=== PATIENT | male | born 1965 | race Caucasian/White ===

== ENCOUNTER 2022-09-13 06:20 | Observation (INO) ==
--- NOTE | 2022-05-15 14:54 | PAT Medication Instructions ---
Medication Instructions Date of Service May 15, 2022 Home Medications Medication Instructions Recorded acetaminophen 500 mg tablet 1,000 mg PO Q4H PRN fever or pain 01/31/19 #90 tabs epinephrine 0.3 mg/0.3 mL 0.3 mg (0.3 mL) IM Q4H PRN BEE 12/22/20 injection, auto-injector STING #2 ea albuterol sulfate 90 mcg/actuation 2 puff inhalation Q4H PRN 02/14/21 aerosol inhaler shortness of breath or wheezing #18 grams fremanezumab-vfrm 225 mg/1.5 mL 225 mg (1.5 mL) subcut MONTHLY 30 06/06/21 subcutaneous auto-injector (Ajovy) days #1.5 mL pyridostigmine bromide 60 mg tablet 60 mg PO TID #90 tabs 06/06/21 rizatriptan 10 mg tablet (Maxalt) 10 mg PO .COMPLEX PRN migraine 06/06/21 headache 30 days #9 tabs lisinopril 20 1 tab PO QAM #90 tabs 12/12/21 mg-hydrochlorothiazide 12.5 mg tablet nortriptyline 25 mg capsule 50 mg PO HS #60 caps 12/12/21 nirmatrelvir 300 mg (150 mg See Rx Instructions PO .COMPLEX 04/21/22 x2)-ritonavir 100 mg tablet,dose #30 ea pack(EUA) (Paxlovid) acetaminophen 500 mg tablet 1,000 mg PO Q4H PRN fever or pain esomeprazole magnesium 20 mg capsule,delayed release (Nexium) 20 mg PO QAM epinephrine 0.3 mg/0.3 mL injection, auto-injector 0.3 mg (0.3 mL) IM Q4H PRN BEE STING albuterol sulfate 90 mcg/actuation aerosol inhaler 2 puff inhalation Q4H PRN shortness of breath or wheezing fremanezumab-vfrm 225 mg/1.5 mL subcutaneous auto-injector (Ajovy) 225 mg (1.5 mL) subcut MONTHLY pyridostigmine bromide 60 mg tablet 60 mg PO TID rizatriptan 10 mg tablet (Maxalt) 10 mg PO .COMPLEX PRN migraine headache lisinopril 20 mg-hydrochlorothiazide 12.5 mg tablet 1 tab PO QAM nortriptyline 25 mg capsule 50 mg PO HS nirmatrelvir 300 mg (150 mg x2)-ritonavir 100 mg tablet,dose pack(EUA) (Paxlovid) See Rx Instructions PO .COMPLEX diltiazem HCl 120 mg tablet,extended release 24 hr 120 mg PO QAM Continue as directed epinephrine 0.3 mg/0.3 mL injection, auto-injector 0.3 mg (0.3 mL) IM Q4H PRN BEE STING (if needed) ASK your prescriber and surgeon mayda-vfrm 225 mg/1.5 mL subcutaneous auto-injector (Ajovy) 225 mg (1.5 mL) subcut MONTHLY nortriptyline 25 mg capsule 50 mg PO HS nirmatrelvir 300 mg (150 mg x2)-ritonavir 100 mg tablet,dose pack(EUA) (Paxlovid) See Rx Instructions PO .COMPLEX DO NOT take the morning of surgery lisinopril 20 mg-hydrochlorothiazide 12.5 mg tablet 1 tab PO QAM Take morning of surgery With a small sip of water, OTHERWISE NOTHING TO EAT OR DRINK AFTER MIDNIGHT: acetaminophen 500 mg tablet 1,000 mg PO Q4H PRN fever or pain (if needed) esomeprazole magnesium 20 mg capsule,delayed release (Nexium) 20 mg PO QAM albuterol sulfate 90 mcg/actuation aerosol inhaler 2 puff inhalation Q4H PRN shortness of breath or wheezing (use if needed; please bring rescue inhaler with you to hospital day of surgery if possible) pyridostigmine bromide 60 mg tablet 60 mg PO TID rizatriptan 10 mg tablet (Maxalt) 10 mg PO .COMPLEX PRN migraine headache (if needed) diltiazem HCl 120 mg tablet,extended release 24 hr 120 mg PO QAM Take evening before surgery acetaminophen 500 mg tablet 1,000 mg PO Q4H PRN fever or pain (if needed) albuterol sulfate 90 mcg/actuation aerosol inhaler 2 puff inhalation Q4H PRN shortness of breath or wheezing (if needed) pyridostigmine bromide 60 mg tablet 60 mg PO TID rizatriptan 10 mg tablet (Maxalt) 10 mg PO .COMPLEX PRN migraine headache (if needed) Other Notes If you have any questions please call us at [phone] or [phone] or [phone] or [phone]
--- NOTE | 2022-05-16 12:57 | Anesthesiology Consultation ---
Date of Service May 16, 2022 Assessment & Plan (1) Encounter for pre-operative examination: - Awaiting surgeon-ordered PCP (KALYN, scheduled 06/05) and cardiology (Dr. Reid, scheduled 05/29) preop evaluations. - Neurology office visit (05/15/22): "history of seronegative, thymoma negative myasthenia gravis. Experiences some heat and fatigue related symptoms, usually mild ptosis, occasional diplopia, occasional mild generalized weakness of the nothing that significantly affects his independent functioning. It was suggested that he potentially start Imuran earlier this spring, after an assessment with his neuromuscular disease specialist at [facility], although recommendation was to wait until after his right total knee arthroplasty. In any event, patient's symptoms have significantly improved, he is currently asymptomatic in terms of his myasthenia gravis. He continues with Mestinon, 120 mg taken 3 times per day. Tolerating well. At this point, I would consider this patient neurologically stable in terms of his myasthenia gravis, in anticipation of right total knee arthroplasty June 21. A letter or statement of stability was requested from his surgeon. Patient will continue to follow with his neuromuscular disease specialist at [facility] as well. If he were to experience significant escalation in his myasthenia symptoms, it would not be unreasonable to try a medication such as azathioprine to further control his myasthenia gravis, even though he is seronegative. Return to clinic in 6 months." - COVID screening: Per assessment on 05/16: Travel screen negative. Patient vaccinated. Patient was Covid positive home test 04/18/22 and PCR testing 04/21/22 ([facility]). Symptoms at time: Fatigue, SOB, body aches > now resolved. Pt can proceed as scheduled without additional preop Covid testing or additional Covid contact precautions per 90 days protocol. - Outpatient joint assessment: Pt currently scheduled for inpatient pathway. If surgeon requests review for outpatient joint pathway, patient is not recommended candidate for outpatient joint program from anesthesia standpoint. Chart Review Chart Review: Patient seen in Pre Admission Testing Teaching & Discussion Pre-Anesthesia Teaching/Discussion Notes: Instructed NPO after midnight before surgery,except medications with 15 cc of water. Medication instructions provided according to the PAT guidelines. History Surgery Operation Date: 06/21/22 10:15 Proposed Procedures p Right Total Knee Arthroplasty - Marvel Rosenthal MD Height/Weight Height: 5 ft 8 in Weight: 88.5 kg Allergies Allergy/AdvReac Type Severity Reaction Status Date / Time bee venom protein (honey bee) Allergy Severe Anaphylaxis Verified 05/15/22 15:04 celecoxib [From Celebrex] Allergy Severe Flushed Verified 05/15/22 15:23 face, throat tightness hydrocodone [From Vicodin] Allergy Intermediate Finger Verified 05/15/22 15:23 swelling, Rash (back) Penicillins Allergy Intermediate Hives Verified 05/15/22 15:04 vancomycin Allergy Mild Rash (back) Verified 05/15/22 15:23 Medications Home Medications Medication Instructions Recorded Confirmed Last Taken acetaminophen 500 mg tablet 1,000 mg PO Q4H PRN fever or pain 01/31/19 05/15/22 09/16/20 #90 tabs esomeprazole magnesium 20 mg 20 mg PO QAM 09/07/20 05/15/22 09/16/20 capsule,delayed release (Nexium) epinephrine 0.3 mg/0.3 mL 0.3 mg (0.3 mL) IM Q4H PRN BEE 12/22/20 05/15/22 Unknown injection, auto-injector STING #2 ea albuterol sulfate 90 mcg/actuation 2 puff inhalation Q4H PRN 02/14/21 05/15/22 Unknown aerosol inhaler shortness of breath or wheezing #18 grams fremanezumab-vfrm 225 mg/1.5 mL 225 mg (1.5 mL) subcut MONTHLY 30 06/06/21 05/15/22 Unknown subcutaneous auto-injector (Ajovy) days #1.5 mL rizatriptan 10 mg tablet (Maxalt) 10 mg PO .COMPLEX PRN migraine 06/06/21 05/15/22 Unknown headache 30 days #9 tabs lisinopril 20 1 tab PO QAM #90 tabs 12/12/21 05/15/22 Unknown mg-hydrochlorothiazide 12.5 mg tablet nortriptyline 25 mg capsule 50 mg PO HS #60 caps 12/12/21 05/15/22 Unknown nirmatrelvir 300 mg (150 mg See Rx Instructions PO .COMPLEX 04/21/22 05/15/22 Unknown x2)-ritonavir 100 mg tablet,dose #30 ea pack(EUA) (Paxlovid) diltiazem HCl 120 mg 120 mg PO QAM 05/15/22 05/15/22 Unknown tablet,extended release 24 hr pyridostigmine bromide 60 mg tablet 120 mg PO TID 05/15/22 Unknown Past Medical History Medical History Acid reflux Asthma Stable BPH (benign prostatic hyperplasia) Chronic migraine Degenerative cervical spinal stenosis Gluten intolerance History of COVID-19 04/18/2022 History of kidney stones HTN (hypertension) Hx of supraventricular tachycardia Jaw clicking never locked Lumbar pain Myasthenia gravis Stable, does have leg weakness after walking long distance Osteoarthritis Sleep apnea "Mild", no device Exercise / Class Metabolic Activity III < 4 Walking/Shop/Light housework (one FS (no CP, occasional SOB)) Past Family History Family History Mother Lung cancer Grandfather (Maternal) Prostate cancer Colorectal cancer Grandfather (Paternal) Myocardial infarction Other No family history of adverse response to anesthesia Past Surgical History Surgical History H/O cardiac radiofrequency ablation 02/16/22>FOR SVT/ZAZALLI H/O hand surgery BENIGN TUMOR REMOVED FROM RT HAND History of anesthesia reaction SLOW TO WAKE UP WITH NECK SURGERY History of colonoscopy History of lithotripsy History of neck surgery X 2 (FUSION) no limitations History of shoulder surgery RT History of tonsillectomy History of wisdom tooth extraction Hx of vasectomy Past Anesthesia History No Family Hx of Anesthesia Complications and Other ("Slow to wake" with remote neck surgery) History of PONV No Hx of PONV and Hx of Motion Sickness (occasional) Social History Smoking Status: Never smoker Do You Dip or Chew Tobacco: No Hx Alcohol Use: Yes Alcohol type: beer alcohol intake frequency: holidays/special occasions only Hx Substance Use: No substance use type: does not use Review of Systems Patient denies chest pain, shortness of breath, fever, chills, cough, wheezing, palpitations. Physical Exam Vital Signs VITALS BP 128/86 P 94 TEMP 98.2 SP02 95%RA RESP 18 PHYSICAL Full cervical extension range of motion. Full TMJ range of motion. TMD 3 finger breaths Mallampati Score 2 Dentition: intact, + crowns Lungs: clear throughout to auscultation Cardiac: regular rate and rhythm, no murmurs noted Spine: normal Carotid arteries: negative bruit Extremities: no edema Lab Results Anesthesia Preop Results Results Anesthesia Widget: WBC 6.08 K/ul (4.8-10.8) 05/16/22 Hgb 16.2 g/dl (14.0-18.0) 05/16/22 Hct 45.8 % (40.1-51.0) 05/16/22 Plt 268 K/uL (130-400) 05/16/22 Na 140 mmol/L (136-145) 05/16/22 K 4.0 mmol/L (3.5-5.1) 05/16/22 Cl 100 mmol/L (98-107) 05/16/22 CO2 34 mmol/L (21-32) H 05/16/22 BUN 6 mg/dl (6-23) 05/16/22 Creat 1.01 mg/dl (0.6-1.4) 05/16/22 Glucose Level 88 mg/dl (70-99(Fasting)) 05/16/22 PT 10.3 Seconds (9.0-12.0) 05/16/22 PTT 29.7 Seconds (21.0-31.0) 05/16/22 INR 1.0 (0.9-1.1) 05/16/22 HA1c 5.7 % (4.5-5.6) H 05/16/22 Urine Color Yellow 05/16/22 Urine Appearance Clear (Clear) 05/16/22 Urine pH 7.0 (4.5-7.5) 05/16/22 Urine Specific [place] 1.005 (1.000-1.030) 05/16/22 Urine Protein Negative (Negative) 05/16/22 Urine Glucose (UA) Negative (Negative) 05/16/22 Urine Ketones Negative (Negative) 05/16/22 Urine Blood Negative (Negative) 05/16/22 Urine Nitrite Negative (Negative) 05/16/22 Urine Bilirubin Negative (Negative) 05/16/22 Urine Urobilinogen Negative (Negative) 05/16/22 Urine Leukocyte Esterase Negative (Negative) 05/16/22 Blood Type O Negative 05/16/22 Antibody Screen NEGATIVE 05/16/22 Testing Electrocardiogram Date: 04/17/22 Findings: + NSR @ (98) Chest X-Ray Date: 01/02/22 No acute findings. Echocardiogram Date: 06/24/21 LVEF 61%. Grade 1 diastolic dysfunction. Nondilated cardiac chambers. Mildly enlarged aortic root (3.8 cm). No significant valvular disease. No regional motion abnormality. Stress Test Date: 12/27/21 Type: nuclear Lexiscan nuclear stress test negative for ischemia. LVEF 66%. Gated SPECT images reveal normal myocardial thickening and wall motion. 91% MPHR. Other Testing 14 day nurse monitoring (04/17/22) Predomiannt rhythm sinus with an average HR 91bpm; slowest HR 53bpm at 3:32am consistent with sinus bradycardia; fastest HR 158bpm at 11:43am consistent with sinus tachycardia. Rare APC; no runs of SVT, PAT or AF. Rare VPC; no runs of NSVT. The patient triggered events 11 times while in SR wiht HR ranging from 72-141 and some PVCs. COVID-19 Risk Screen Screening Information COVID-19 Screen Date: 05/16/22 Exposure 21 Days Family/Household +COVID Last 21 Days: No Exposure 10 Days Any COVID Exposure Last 10 Days: No Symptoms Last 10 Days Experienced COVID Sx Last 10 Days: No + COVID 0-90 Days COVID + in Last 0-90 Days: Yes + COVID Test 0-10 Day: No + COVID Test 11-90 Day: Yes
--- NOTE | 2022-06-04 08:54 | History & Physical Report ---
Date of Service June 04, 2022 Assessment & Plan (1) Primary osteoarthritis of right knee: Plan: Treatment options discussed with patient. He has failed conservative measures and like to proceed with surgical intervention. Risks, benefits and alternatives to surgery including but not limited to infection, DVT, pain, stiffness, need for revision surgery, damage to blood vessels, damage to nerves, PE, , were discussed with the patient and they wish to proceed. Plan on right total knee arthroplasty scheduled for June 21 at [facility] with Dr. Rosenthal. We will plan on aspirin 81 mg twice daily for 1 month postop for DVT prophylaxis. We will plan on outpatient PT. All questions answered. Patient will follow-up postop. History of Present Illness Chief Complaint: Right knee pain Primary Care Provider: Josep Chowdhury DO 57-year-old male with past apical history significant for hypertension, myas thenia gravis, SVT, asthma who presents with ongoing right knee pain. Pain is interfering with his daily activities. He has failed conservative measures and would like to proceed with surgical intervention. Patient denies headaches, sweats, fevers, chills, double vision, blurred vision, cough, sore throat, dysphagia, chest pain, sob, wheezing, n/v/d/c, numbness, tingling, fatigue, urinary symptoms, mood disorders. ROS positive for right knee pain and stiffness. Allergies Allergy/AdvReac Type Severity Reaction Status Date / Time bee venom protein (honey bee) Allergy Severe Anaphylaxis Verified 05/15/22 15:04 celecoxib [From Celebrex] Allergy Severe Flushed Verified 05/15/22 15:23 face, throat tightness hydrocodone [From Vicodin] Allergy Intermediate Finger Verified 05/15/22 15:23 swelling, Rash (back) Penicillins Allergy Intermediate Hives Verified 05/15/22 15:04 vancomycin Allergy Mild Rash (back) Verified 05/15/22 15:23 Home Medications Medication Instructions Recorded Confirmed Type acetaminophen 500 mg tablet 1,000 mg PO Q4H PRN fever or pain 01/31/19 05/15/22 Rx #90 tabs esomeprazole magnesium 20 mg 20 mg PO QAM 09/07/20 05/15/22 History capsule,delayed release (Nexium) epinephrine 0.3 mg/0.3 mL 0.3 mg (0.3 mL) IM Q4H PRN BEE 12/22/20 05/15/22 Rx injection, auto-injector STING #2 ea albuterol sulfate 90 mcg/actuation 2 puff inhalation Q4H PRN 02/14/21 05/15/22 Rx aerosol inhaler shortness of breath or wheezing #18 grams fremanezumab-vfrm 225 mg/1.5 mL 225 mg (1.5 mL) subcut MONTHLY 30 06/06/21 05/15/22 Rx subcutaneous auto-injector (Ajovy) days #1.5 mL rizatriptan 10 mg tablet (Maxalt) 10 mg PO .COMPLEX PRN migraine 06/06/21 05/15/22 Rx headache 30 days #9 tabs lisinopril 20 1 tab PO QAM #90 tabs 12/12/21 05/15/22 Rx mg-hydrochlorothiazide 12.5 mg tablet nortriptyline 25 mg capsule 50 mg PO HS #60 caps 12/12/21 05/15/22 Rx nirmatrelvir 300 mg (150 mg See Rx Instructions PO .COMPLEX 04/21/22 05/15/22 Rx x2)-ritonavir 100 mg tablet,dose #30 ea pack(EUA) (Paxlovid) diltiazem HCl 120 mg 120 mg PO QAM 05/15/22 05/15/22 History tablet,extended release 24 hr pyridostigmine bromide 60 mg tablet 120 mg PO TID 05/15/22 History Past Med/Surg History Medical History Acid reflux Asthma Stable BPH (benign prostatic hyperplasia) Chronic migraine Degenerative cervical spinal stenosis Gluten intolerance History of COVID-19 04/18/2022 History of kidney stones HTN (hypertension) Hx of supraventricular tachycardia Jaw clicking never locked Lumbar pain Myasthenia gravis Stable, does have leg weakness after walking long distance Osteoarthritis Sleep apnea "Mild", no device Surgical History H/O cardiac radiofrequency ablation 02/16/22>FOR SVT/ZAZALLI H/O hand surgery BENIGN TUMOR REMOVED FROM RT HAND History of anesthesia reaction SLOW TO WAKE UP WITH NECK SURGERY History of colonoscopy History of lithotripsy History of neck surgery X 2 (FUSION) no limitations History of shoulder surgery RT History of tonsillectomy History of wisdom tooth extraction Hx of vasectomy Family History Mother Lung cancer Grandfather (Maternal) Prostate cancer Colorectal cancer Grandfather (Paternal) Myocardial infarction Other No family history of adverse response to anesthesia Social History Smoking Status: Never smoker Second Hand Exposure: Yes ( A CHILD); Hx Alcohol Use: Yes Alcohol type: beer Hx Substance Use: No Preferred Language: [place] Communication Ability: Effective Case Sealer Required: No Beliefs That Will Affect Care: None marital status: Current Living Situation: Spouse Current Living Situation Comment: Lives with spouse and two children current occupational status: employed 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 Feels Safe at Home: Yes Childhood Exposure to Second-Hand Smoke: Yes Dental Care, Regularly: Yes Physical Activity Frequency: Does not Exercise Seatbelt Use: always Assistive Devices: Glasses Review of Systems All systems reviewed & are unremarkable except as noted in HPI & below Physical Exam Constitutional: well developed and well nourished; no acute distress Eyes: PERRL, conjunctivae normal, anicteric sclerae ENMT: external ear and nose normal, oropharynx normal Neck: trachea midline, no thyromegaly Respiratory: normal respiratory effort, lungs clear to auscultation Cardiovascular: RRR, no murmur, no edema Musculoskeletal: Right knee: Varus alignment. Moderate effusion. Tenderness medial joint line with moderate swelling. He has mild crepitation. Positive Gregorio's. Stable valgus varus stress test. Range of motion 0 to 125 degrees. Skin: no rashes, warm and dry Neurologic: patellar DTR's 2+ bilat, sensation intact Psychiatric: A+Ox3, euthymic affect Results & Data ([place]) Diagnostic Findings Right knee radiographs demonstrate end-stage osteoarthritis right knee. Patient has [id number] medial compartment. There is tricompartmental degenerative changes. He has periarticular osteophyte formation and subchondral sclerosis.
--- NOTE | 2022-09-07 14:36 | Anesthesiology Consultation ---
Date of Service September 07, 2022 Assessment & Plan (1) Encounter for pre-operative examination: Chart Review Chart Review: Acceptable Risk for Surgery (pending DOS labs ) and Patient NOT seen in Pre Admission Testing Pt initially scheduled for surgery 06/2022 (surgery rescheduled due to surgeon being ill)- rescheduled for 09/11/22 - No preop labs updated- will order CBC with diff, PRP and coags for stat AM of surgery - Pt is NOT acceptable outpatient joint candidate due to comorbidities -COVID screening: Per PAT nursing assessment on 09/04/22. Pt traveled to [place] in the past 30 days. No known COVID-19 positive contacts or current COVID-19 related symptoms. Patient vaccinated for Covid. At surgeon discretion if preop Covid testing being done. Seen by PCP 06/05/22= seen for preop examination. Chronic problems are stable and well controlled. Preop testing reviewed and without significant abnormalities. He has no present contraindications to upcoming elective procedure. His surgical risk is acceptable. He will be cleared for surgery Last seen by cardio 05/29/2022 = patient seen for follow-up. History of paroxysmal SVTstatus post ablation in January 2022. Did have small recurrence of mild symptoms in March 2022 which has significantly improved with to start of diltiazem. Patient stable from a cardiac standpoint. HR better controlled. BP well controlled. Will increase diltiazem, decrease LALITO inhibitor and stop hydrochlorothiazide. He is optimized from a cardiac standpoint with no contraindication for planned upcoming procedure in June. Patient is at an acceptable low cardiovascular risk for upcoming orthopedic surgery; no further cardiac testing necessary.(Pt's surgery was rescheduled from Jun 2022 to Aug 2022) History Surgery Operation Date: 09/13/22 07:15 Proposed Procedures p Right Total Knee Arthroplasty - Marvel Rosenthal MD Height/Weight Height: 5 ft 8 in Weight: 87.09 kg Allergies Allergy/AdvReac Type Severity Reaction Status Date / Time bee venom protein (honey bee) Allergy Unknown Anaphylaxis Verified 09/04/22 13:20 celecoxib [From Celebrex] Allergy Unknown Flushed Verified 09/04/22 13:20 face, throat tightness hydrocodone [From Vicodin] Allergy Unknown Finger Verified 09/04/22 13:20 swelling, Rash (back) Penicillins Allergy Unknown Hives Verified 09/04/22 13:20 vancomycin Allergy Unknown Rash (back) Verified 09/04/22 13:20 Medications Home Medications Medication Instructions Recorded Confirmed Last Taken acetaminophen 500 mg tablet 1,000 mg PO Q4H PRN fever or pain 01/31/19 06/05/22 09/16/20 #90 tabs esomeprazole magnesium 20 mg 20 mg PO QAM 09/07/20 06/05/22 09/16/20 capsule,delayed release (Nexium) epinephrine 0.3 mg/0.3 mL 0.3 mg (0.3 mL) IM Q4H PRN BEE 12/22/20 06/05/22 Unknown injection, auto-injector STING #2 ea fremanezumab-vfrm 225 mg/1.5 mL 225 mg (1.5 mL) subcut MONTHLY 30 06/06/2105/20 Unknown subcutaneous auto-injector (Ajovy) days #1.5 mL pyridostigmine bromide 60 mg tablet 120 mg PO TID 05/15/22 09/04/22 Unknown albuterol sulfate 90 mcg/actuation 2 puff inhalation Q4H PRN 06/05/22 09/04/22 Unknown aerosol inhaler shortness of breath or wheezing #18 grams diltiazem HCl 180 mg 180 mg PO QAM #90 tabs 06/05/22 09/04/22 Unknown tablet,extended release 24 hr azathioprine 50 mg tablet 50 mg PO BID 09/04/22 09/04/22 Unknown lisinopril 10 mg tablet 40 mg PO QAM 09/04/22 09/04/22 Unknown prednisone 20 mg tablet 30 mg PO QAM 09/04/22 09/04/22 Unknown rizatriptan 10 mg tablet (Maxalt) 10 mg PO UD PRN migraine headache 09/04/22 09/04/22 Unknown Past Medical History Medical History (Updated 09/07/22 @ 14:38 by Roseanne Simmons PA-C) Acid reflux Asthma Stable BPH (benign prostatic hyperplasia) Chronic migraine Degenerative cervical spinal stenosis Gluten intolerance History of COVID-19 04/18/2022 History of kidney stones HTN (hypertension) Hx of supraventricular tachycardia S/p ablation January 2022 Per 05/2022 cardio note- symptoms improved with ablation and start of Dil tiazem in March 2022 Jaw clicking never locked Lumbar pain Myasthenia gravis - Stable, does have leg weakness after walking long distance - Follows with [facility]- last seen 07/14/22- did have increased LE weakness, ptosis and dyspnea- started on Prednisone and Imuran; continue Mestinon- f/u in four months - Pt symptoms much improved with medications per phone conversation 09/07/22 Osteoarthritis Sleep apnea "Mild", no device Past Family History Family History Mother Lung cancer Grandfather (Maternal) Prostate cancer Colorectal cancer Grandfather (Paternal) Myocardial infarction Other No family history of adverse response to anesthesia Past Surgical History Surgical History H/O cardiac radiofrequency ablation 02/16/22>FOR SVT/ZAZALLI H/O hand surgery BENIGN TUMOR REMOVED FROM RT HAND History of anesthesia reaction SLOW TO WAKE UP WITH NECK SURGERY History of colonoscopy History of endoscopy History of lithotripsy History of neck surgery X 2 (FUSION) no limitations History of shoulder surgery RT History of tonsillectomy History of wisdom tooth extraction Hx of vasectomy Social History Smoking Status: Never smoker Do You Dip or Chew Tobacco: No Hx Alcohol Use: Yes Alcohol type: beer alcohol intake frequency: holidays/special occasions only Hx Substance Use: No substance use type: does not use Testing Electrocardiogram Date: 04/17/22 Findings: + NSR @ (98) Chest X-Ray Date: 01/02/22 No acute findings. Echocardiogram Date: 06/24/21 LVEF 61%. Grade 1 diastolic dysfunction. Nondilated cardiac chambers. Mildly enlarged aortic root (3.8 cm). No significant valvular disease. No regional motion abnormality. Stress Test Date: 12/27/21 Type: nuclear Lexiscan nuclear stress test negative for ischemia. LVEF 66%. Gated SPECT images reveal normal myocardial thickening and wall motion. 91% MPHR. Other Testing 14 day telemetry monitor (04/17/22) Predomiannt rhythm sinus with an average HR 91bpm; slowest HR 53bpm at 3:32am consistent with sinus bradycardia; fastest HR 158bpm at 11:43am consistent with sinus tachycardia. Rare APC; no runs of SVT, PAT or AF. Rare VPC; no runs of NSVT. The patient triggered events 11 times while in SR wiht HR ranging from 72-141 and some PVCs.
--- NOTE | 2022-09-11 16:47 | History & Physical Report ---
Date of Service September 11, 2022 Assessment & Plan (1) Primary osteoarthritis of right knee: Plan: Treatment options discussed with patient. He has failed conservative measures and like to proceed with surgical intervention. Risks, benefits and alternatives to surgery including but not limited to infection, DVT, pain, stiffness, need for revision surgery, damage to blood vessels, damage to nerves, PE, , were discussed with the patient and they wish to proceed. Plan on right total knee arthroplasty scheduled for September 13 at [facility] with Dr. Rosenthal. We will plan on aspirin 81 mg twice daily for 1 month postop for DVT prophylaxis. We will plan on outpatient PT. All questions answered. Patient will follow-up postop. History of Present Illness Chief Complaint: Right knee pain Primary Care Provider: Josep Chowdhury DO 57-year-old male with past medical history significant for hypertension, m yasthenia gravis, SVT, asthma, migraines who presents with ongoing right knee pain. Pain is interfering with his daily activities. He has failed conservative measures and would like to proceed with surgical intervention. Patient denies headaches, sweats, fevers, chills, double vision, blurred vision, cough, sore throat, dysphagia, chest pain, sob, wheezing, n/v/d/c, numbness, tingling, fatigue, urinary symptoms, mood disorders. ROS positive for right knee pain and stiffness. Allergies Allergy/AdvReac Type Severity Reaction Status Date / Time bee venom protein (honey bee) Allergy Unknown Anaphylaxis Verified 09/13/22 07:04 celecoxib [From Celebrex] Allergy Unknown Flushed Verified 09/13/22 07:04 face, throat tightness hydrocodone [From Vicodin] Allergy Unknown Finger Verified 09/13/22 07:04 swelling, Rash (back) Penicillins Allergy Unknown Hives Verified 09/13/22 07:04 vancomycin Allergy Unknown Rash (back) Verified 09/13/22 07:04 Home Medications Medication Instructions Recorded Confirmed Type acetaminophen 500 mg tablet 1,000 mg PO Q4H PRN fever or pain 01/31/19 09/13/22 Rx #90 tabs esomeprazole magnesium 20 mg 20 mg PO QAM 09/07/20 09/13/22 History capsule,delayed release (Nexium) epinephrine 0.3 mg/0.3 mL 0.3 mg (0.3 mL) IM Q4H PRN BEE 12/22/20 06/05/22 Rx injection, auto-injector STING #2 ea fremanezumab-vfrm 225 mg/1.5 mL 225 mg (1.5 mL) subcut MONTHLY 30 06/06/21 09/13/22 Rx subcutaneous auto-injector (Ajovy) days #1.5 mL pyridostigmine bromide 60 mg tablet 120 mg PO TID 05/15/22 09/13/22 History albuterol sulfate 90 mcg/actuation 2 puff inhalation Q4H PRN 06/05/22 09/13/22 Rx aerosol inhaler shortness of breath or wheezing #18 grams diltiazem HCl 180 mg 180 mg PO QAM #90 tabs 06/05/22 09/13/22 Rx tablet,extended release 24 hr azathioprine 50 mg tablet 50 mg PO BID 09/04/22 09/13/22 History lisinopril 10 mg tablet 40 mg PO QAM 09/04/22 09/13/22 History prednisone 20 mg tablet 30 mg PO QAM 09/04/22 09/13/22 History rizatriptan 10 mg tablet (Maxalt) 10 mg PO UD PRN migraine headache 09/04/22 09/04/22 History Past Med/Surg History Medical History Acid reflux Asthma Stable BPH (benign prostatic hyperplasia) Chronic migraine Degenerative cervical spinal stenosis Gluten intolerance History of COVID-19 04/18/2022 History of kidney stones HTN (hypertension) Hx of supraventricular tachycardia S/p ablation January 2022 Per 05/2022 cardio note- symptoms improved with ablation and start of Diltiazem in March 2022 Jaw clicking never locked Lumbar pain Myasthenia gravis - Stable, does have leg weakness after walking long distance - Follows with [facility]- last seen 07/14/22- did have increased LE weakness, ptosis and dyspnea- started on Prednisone and Imuran; continue Mestinon- f/u in four months - Pt symptoms much improved with medications per phone conversation 09/07/22 Osteoarthritis Sleep apnea "Mild", no device Surgical History H/O cardiac radiofrequency ablation 02/16/22>FOR SVT/ZAZALLI H/O hand surgery BENIGN TUMOR REMOVED FROM RT HAND History of anesthesia reaction SLOW TO WAKE UP WITH NECK SURGERY History of colonoscopy History of endoscopy History of lithotripsy History of neck surgery X 2 (FUSION) no limitations History of shoulder surgery RT History of tonsillectomy History of wisdom tooth extraction Hx of vasectomy Family History Mother Lung cancer Grandfather (Maternal) Prostate cancer Colorectal cancer Grandfather (Paternal) Myocardial infarction Other No family history of adverse response to anesthesia Social History Smoking Status: Never smoker Second Hand Exposure: No; Do You Dip or Chew Tobacco: No; Hx Alcohol Use: Yes Alcohol type: beer Hx Substance Use: No Preferred Language: Luxembourgish Communication Ability: Effective 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 Beliefs That Will Affect Care: None marital status: Current Living Situation: Spouse and Family Current Living Situation Comment: Lives with spouse and two children current occupational status: employed 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 Other Information That Helps Us Care for You: No Feels Safe at Home: Yes Safety Concerns: Feels Safe At This Time Childhood Exposure to Second-Hand Smoke: Yes Dental Care, Regularly: Yes Physical Activity Frequency: Does not Exercise Seatbelt Use: always Assistive Devices: Glasses Review of Systems All systems reviewed & are unremarkable except as noted in HPI & below Physical Exam Constitutional: well developed and well nourished; no acute distress Eyes: PERRL, conjunctivae normal, anicteric sclerae ENMT: external ear and nose normal, oropharynx normal Neck: trachea midline, no thyromegaly Respiratory: normal respiratory effort, lungs clear to auscultation Cardiovascular: RRR, no murmur, no edema Musculoskeletal: Right knee radiographs demonstrate end-stage osteoarthritis right knee. Patient has [id number] medial compartment. There is tricompartmental degenerative changes. He has periarticular osteophyte formation and subchondral sclerosis. Skin: no rashes, warm and dry Neurologic: patellar DTR's 2+ bilat, sensation intact Psychiatric: A+Ox3, euthymic affect Results & Data ([facility]) Diagnostic Findings Right knee radiographs demonstrate end-stage osteoarthritis right knee. Patient has [id number] medial compartment. There is tricompartmental degenerative changes. He has periarticular osteophyte formation and subchondral sclerosis.
[~2022-09-13 06:20] MED LIST: ACETAMINOPHEN 500 MG TAB PO SCH; ALLERGY Noted to ORDERED Medication SCH; CLINDAMYCIN/D5W 600 MG/54 ML BAG IV SCH; CLINDAMYCIN/D5W 900 MG/50 ML BAG IV SCH; FAMOTIDINE 20 MG TAB PO SCH; GABAPENTIN 600 MG DOSE PO SCH; LR 500ML BOLUS, THEN 15ML/HR IV SCH; METOCLOPRAMIDE HCL 10 MG TABLET PO SCH; ROPIVACAINE 0.5% HCL/PF 150 MG, BUPIVACAINE 0.75% MPF 20 ML, EPINEPHrine 30MG/30ML (OR ... INSTIL SCH; TRANEXAMIC ACID 1,000 MG **IV Intra-op IV SCH; TRANEXAMIC ACID 1,000 MG **IV Pre-op IV SCH; dexAMETHasone 4 MG TAB PO SCH
[2022-09-13] MEDS ORDERED: MIDAZOLAM HCL 1 MG/ML 2ML VIAL ONE (06:50)
[2022-09-13] MEDS ORDERED: fentaNYL citrate 100 MCG/2 ML VIAL ONE (06:51)
[2022-09-13] MEDS ORDERED: PROPOFOL IV EMULSION 10 MG/ML 20 ML VIAL IV ONE (06:51)
[2022-09-13] MEDS ORDERED: ONDANSETRON INJ 2 MG/ML 2 ML VIAL ONE (06:51)
[2022-09-13] MEDS ORDERED: LIDOCAINE 2% MPF LOCAL 5 ML VIAL INFIL ONE (06:51)
[2022-09-13 06:52] LABS: Basophils # (auto) 0.04 K/uL (0-0.2); Basophils % (auto) 0.4 %; Eosinophils # (auto) 0.09 K/uL (0-0.50); Eosinophils % (auto) 0.8 %; Hematocrit (blood only) 45.5 % (40.1-51.0); Hemoglobin 15.9 g/dl (14.0-18.0); Immature Granulocytes # (auto) 0.06 K/uL (0.00-0.02); Immature Granulocytes % (auto) 0.5 %; Lymphocytes # (auto) 1.95 K/uL (1.2-3.4); Lymphocytes % (auto) 17.1 %; Mean Corpuscular Hemoglobin 32.7 pg (25.0-34.0); Mean Corpuscular Hgb Conc 34.9 g/dL (32.0-36.0); Mean Corpuscular Volume 93.6 fL (80.0-100.0); Mean Platelet Volume 9.4 fL (9.4-12.4); Monocytes % (auto) 8.8 %; Neutrophils # (auto) 8.27 K/uL (1.4-6.5); Neutrophils % (auto) 72.4 %; Platelet Count 277 K/uL (130-400); RDW Coefficient of Variation 13.2 % (11.5-14.5); RDW Standard Deviation 45.2 fL (36.4-46.3); Red Blood Count 4.86 M/uL (4.63-6.08); White Blood Count 11.41 K/ul (4.8-10.8)
[2022-09-13 07:08] LABS: BUN Creatinine Ratio 12.5 (10-20); Calcium 9.3 mg/dl (8.5-10.1); Creatinine Clr Calc Pharmacy 92.2 ml/min; Potassium 3.7 mmol/L (3.5-5.1)
--- NOTE | 2022-09-13 07:18 | History & Physical Bridge Note ---
Date of Service September 13, 2022 History & Physical Bridge Note I have examined the patient, reviewed the History & Physical and in the interval since the performance of the History & Physical I have noted the following changes of clinical significance: no changes noted
[2022-09-13 07:25] LABS: INR 0.9 (0.9-1.1); Partial Thromboplastin Time 27.1 Seconds (21.0-31.0); Prothrombin Time 9.9 Seconds (9.0-12.0)
[2022-09-13] MEDS ORDERED: ROPIVACAINE 0.5% 5 MG/ML 30 ML VIAL ONE (07:43)
[2022-09-13] MEDS ORDERED: EPINEPHrine INJ 1 MG/ML AMP ONE (07:43)
[2022-09-13] MEDS ORDERED: BUPIVACAINE 0.5 % 5 MG/1 ML PF 10ML VIAL ONE (07:43)
[2022-09-13 07:57] LABS: Appearance Urine Cloudy (Clear); Bacteria Urine Automated Negative (Negative); Bilirubin Urine Negative (Negative); Blood Urine Negative (Negative); Color Urine Yellow; Glucose Urine UA Negative (Negative); Ketones Urine Negative (Negative); Leukocyte Esterase Urine Negative (Negative); Nitrite Urine Negative (Negative); Protein Urine Negative (Negative); RBC Urine Automated 0-4 /hpf (0-4); Specific Gravity Urine 1.014 (1.000-1.030); Urobilinogen Urine Negative (Negative)
[2022-09-13] MEDS ORDERED: ORTHO JOINT ANESTHETIC ONE (09:03)
[2022-09-13] MEDS ORDERED: PHENYLEPHRINE HCL 10 MG/ML VIAL ONE (10:44)
[2022-09-13] MEDS ORDERED: ePHEDrine sulfate 50 MG/ML AMP IV PRN (11:24)
[2022-09-13] MEDS ORDERED: ATROPINE SULFATE 0.1 MG/ML 10ML SYR IV PRN (11:24)
--- NOTE | 2022-09-13 12:33 | Operative Report ---
Post Operative Report Pre & Post Diagnosis Operation Date: 09/13/22 09:35 <No data on this case meets the specified criteria> Preoperative diagnosis: End-stage osteoarthritis right knee Postoperative diagnosis: End-stage osteoarthritis right knee I identified the patient and participated in the time-out.: Yes Procedure Operation Date: 09/13/22 09:35 <No data on this case meets the specified criteria> Right total knee arthroplasty, hilton and Acticoat superficial wound VAC Surgeon Marvel Rosenthal MD Casserole Preparer Landon NEVAREZ Estimated Blood Loss 5 Findings Consistent with Post-Op Diagnosis Specimens Bone cuts Drains 2 Hemovac Anesthesia Type MAC Spinal Regional Complications none Disposition Disposition: Recovery Room Indications 57-year-old male with chronic bilateral knee osteoarthritis. Radiographs demonstrate tricompartmental osteoarthritis [id number] medial compartment with a varus knee. Description of Procedure Patient was taken to the operating room placed supine on the operating table and anesthetized under spinal MAC regional block anesthesia. Exam under anesthesia demonstrated moderate knee effusion no instability 0 through 120 degrees range of motion. A pneumatic tourniquet was placed about the thigh of the right lower extremity. The right lower extremity was prepped and draped in usual sterile fashion. The leg was elevated exsanguinated with an Esmarch bandage and the pneumatic tourniquet was raised to 300 mm mercury. An anterior incision was made across the right knee. The skin was incised longitudinally subcutaneous flaps were elevated and an incision was made through the medial retinaculum extending up into the mid third of the quadriceps tendon and extended down to the medial tibial tubercle. Intra-articular findings demonstrated tricompartmental osteoarthritis with degeneration of the ACL but still intact ACL. There was grade 4 medial compartment osteoarthritis [id number] and large patellofemoral osteophytes and trochlear arthritic disease. The knee was exposed by excising the infrapatellar fat pad, excising the meniscal remnants and anterior cruciate ligament. Any inflamed synovial tissue was resected. The fat pad over the anterior femur was resected for placement of the component in that area. The lateral synovial bands were release. The femur was exposed. The custom femoral cutting block was pinned in position. The distal femoral cutting block was applied. The distal femoral cut was made with the oscillating saw. The size 10, 4-in-1 cutting block was placed. The anterior and posterior chamfer cuts were made. The knee was extended and a subperiosteal peel lateral release was performed around the patella. The patella width was measured and width was reproduced using freehand cut technique. The 35 millimeter symmetrical patella was used. 3 drill holes are made for the pegs. The tibia was exposed. A custom tibial cutting block was positioned and drill holes were made for the cutting guide. Cutting guide was placed and the proximal cut was made with the oscillating saw. All osteophytes were resected. The lamina vending machine filler was used to assess ligamentous balance and the ligaments were balanced in extension and flexion. Medial and posterior medial releases were required to balance ligaments. The tibia was reexposed and measured for a size E tibial component. This was externally rotated in line with the tibial tubercle and the fixation pins were drilled. The proximal tibia was fashioned with the drill and punch. The size 10 CR femoral trial was inserted. The trial MC inserts were used. The 10 mm insert gave balanced ligaments through full range of motion. The patella tracked centrally. the trials were removed. The orthomix anesthetic cocktail was injected per protocol. The knee was then copiously irrigated with pulsatile lavage saline solution. The final components were cemented with Refobacin bone cement. The final components were 10 standard CR persona right femoral component, right E tibial component, 10 mm MC right polyethylene 4 tibia and a 35 mm symmetrical polyethylene patella. After the cement cured with the knee in full extension the Betadine soak was used per protocol. The knee joint was copiously irrigated with pulsatile lavage saline solution . 2 drains were brought out laterally and connected to a Hemovac. The quadriceps tendon and me dial retinaculum were closed with interrupted [id number] #1 Vicryl sutures. The knee was taken through a full range of motion and repair was secure. The subcutaneous tissues were closed with 2-0 Vicryl sutures and skin was closed with emerson. Hilton and Acticoat superficial wound VAC was applied and the patient tolerated the procedure well. Landon NEVAREZ my physician assistant property manager to space as assistant community manager and was integral part in all aspects of the procedure, he assisted in soft tissue retraction, instrument management ,leg positioning, the closure and will participate in the postoperative care of the patient. I attest to the content of the Intraoperative Record and any orders documented therein. Any exceptions are noted below.
--- NOTE | 2022-09-13 12:44 | Anesthesiology Progress Note ---
Date of Service September 13, 2022 Anesthesia Post Procedure Vital Signs Vital Signs: Temp Pulse Pulse Resp BP Pulse Ox O2 Del Method 09/13/22 12:30 77 15 116/84 93 Room Air 09/13/22 12:15 36.4 C L 76 19 121/78 97 Room Air 09/13/22 12:05 67 15 113/76 98 Room Air 09/13/22 11:45 78 17 112/81 100 Oxymask 09/13/22 11:35 83 20 124/76 100 Oxymask 09/13/22 11:55 85 17 123/76 100 Oxymask 09/13/22 11:29 36.2 C L 89 18 116/76 100 Oxymask 09/13/22 07:08 Room Air 09/13/22 07:08 36.8 C 74 20 154/98 H 96 Room Air O2 Flow Rate 09/13/22 12:30 09/13/22 12:15 09/13/22 12:05 09/13/22 11:45 4 09/13/22 11:35 4 09/13/22 11:55 2 09/13/22 11:29 6 09/13/22 07:08 09/13/22 07:08 Transfer of Care Handoff Completed per policy Notes Mental Status: alert / awake / arousable Patient Amnestic to Procedure: Yes Nausea / Vomiting: adequately controlled Pain: adequately controlled Airway Patency, RR, SpO2: stable & adequate BP & HR: stable & adequate Hydration State: stable & adequate Neuraxial Anesthesia: was administered and sensory block is resolving Anesthetic Complications: no major complications apparent
[2022-09-13] MEDS ORDERED: MAGNESIUM HYDROXIDE SUSP 30 ML UDC PO PRN (13:32)
[2022-09-13] MEDS ORDERED: ONDANSETRON INJ 2 MG/ML 2 ML VIAL IV PRN (13:32)
[2022-09-13] MEDS ORDERED: METOCLOPRAMIDE HCL INJ 5 MG/ML 2 ML VIAL IV PRN (13:32)
[2022-09-13] MEDS ORDERED: NALOXONE HCL 0.4 MG/1 ML VIAL/CARP IV PRN (13:32)
[2022-09-13] MEDS ORDERED: bisacodyL 10 MG SUPP PR PRN (13:32)
[2022-09-13] MEDS ORDERED: SODIUM CHLORIDE 0.9% 1000ML 1,000 ML IV SCH (13:45)
--- NOTE | 2022-09-13 13:45 | XRay Report ---
XR knee RT 1 or 2V routine HISTORY: 57 years-old Male POSTOP RIGHT KNEE right knee total joint arthroplasty COMPARISON: None TECHNIQUE: 2 views of the right knee FINDINGS: Total joint arthroplasty with patellar resurfacing. Surgical drainage catheter in place. Anterior mid line skin emerson are present along with expected postoperative soft tissue swelling with deep tissue air. No acute fracture, dislocation or unexpected opaque foreign body. IMPRESSION: Total joint arthroplasty with expected postoperative changes. ACT 112: Negative or not required by law. The above report was generated using voice recognition software. It may contain grammatical, syntax o r spelling errors. Electronically signed by: Mohamud Kenny M.D. 09/13/2022 1:43 PM
--- NOTE | 2022-09-13 13:53 | Hospitalist Consultation ---
Date of Consultation September 13, 2022 Assessment & Plan (1) Status post total right knee replacement: Pain/VTE/Bowel management per primary orthopedic team (2) Myasthenia gravis: Continue prednisone 30mg PO daily (current blood pressure 143/92 therefore will defer stress dose steroids but have hydrocortisone 50 mg IV 1 dose as needed if his systolic blood pressure < 100 overnight - please call provider if this is given for ongoing dosing). Continue azathioprine 50mg PO BID Continue pyridostigmine 120mg PO TID (3) Acid reflux: Switch Nexium for pantoprazole per hospital formulary (4) HTN (hypertension): Continue diltiazem ER 180mg PO daily Continue lisinopril 40mg PO daily starting tomorrow as long as sBP >= 120 Plan Thank you for the consult. We will continue to follow along with you. History of Present Illness Reason for Consultation: post op management Attending Physician: Marvel Rosenthal MD History of Present Illness Isrrael Villagomez is a 57-year-old male POD#0 right total knee arthroplasty. Estimated blood loss 5 mL. No complications noted on operation note. Patient reports no acute concerns or questions. His myasthenia gravis is reported to be much improved after starting prednisone and azathioprine in June. Allergies Allergy/AdvReac Type Severity Reaction Status Date / Time bee venom protein (honey bee) Allergy Unknown Anaphylaxis Verified 09/13/22 07:04 celecoxib [From Celebrex] Allergy Unknown Flushed Verified 09/13/22 07:04 face, throat tightness hydrocodone [From Vicodin] Allergy Unknown Finger Verified 09/13/22 07:04 swelling, Rash (back) Penicillins Allergy Unknown Hives Verified 09/13/22 07:04 vancomycin Allergy Unknown Rash (back) Verified 09/13/22 07:04 Home Medications Medication Instructions Recorded Confirmed Type acetaminophen 500 mg tablet 1,000 mg PO Q4H PRN fever or pain 01/31/19 09/13/22 Rx #90 tabs esomeprazole magnesium 20 mg 20 mg PO QAM 09/07/20 09/13/22 History capsule,delayed release (Nexium) epinephrine 0.3 mg/0.3 mL 0.3 mg (0.3 mL) IM Q4H PRN BEE 12/22/20 06/05/22 Rx injection, auto-injector STING #2 ea fremanezumab-vfrm 225 mg/1.5 mL 225 mg (1.5 mL) subcut MONTHLY 30 06/06/21 09/13/22 Rx subcutaneous auto-injector (Ajovy) days #1.5 mL pyridostigmine bromide 60 mg tablet 120 mg PO TID 05/15/22 09/13/22 History albuterol sulfate 90 mcg/actuation 2 puff inhalation Q4H PRN 06/05/22 09/13/22 Rx aerosol inhaler shortness of breath or wheezing #18 grams diltiazem HCl 180 mg 180 mg PO QAM #90 tabs 06/05/22 09/13/22 Rx tablet,extended release 24 hr azathioprine 50 mg tablet 50 mg PO BID 09/04/22 09/13/22 History lisinopril 10 mg tablet 40 mg PO QAM 09/04/22 09/13/22 History prednisone 20 mg tablet 30 mg PO QAM 09/04/22 09/13/22 History rizatriptan 10 mg tablet (Maxalt) 10 mg PO UD PRN migraine headache 09/04/22 09/04/22 History Patient History Medical History Acid reflux Asthma Stable BPH (benign prostatic hyperplasia) Chronic migraine Degenerative cervical spinal stenosis Gluten intolerance History of COVID-19 04/18/2022 History of kidney stones HTN (hypertension) Hx of supraventricular tachycardia S/p ablation January 2022 Per 05/2022 cardio note- symptoms improved with ablation and start of Diltiazem in March 2022 Jaw clicking never locked Lumbar pain Myasthenia gravis - Stable, does have leg weakness after walking long distance - Follows with [facility]- last seen 07/14/22- did have increased LE weakness, ptosis and dyspnea- started on Prednisone and Imuran; continue Mestinon- f/u in four months - Pt symptoms much improved with medications per phone conversation 09/07/22 Osteoarthritis Sleep apnea "Mild", no device Surgical History (Updated 09/13/22 @ 14:05 by Denver Medrano MD) H/O cardiac radiofrequency ablation 02/16/22>FOR SVT/ZAZALLI H/O hand surgery BENIGN TUMOR REMOVED FROM RT HAND History of anesthesia reaction SLOW TO WAKE UP WITH NECK SURGERY History of colonoscopy History of endoscopy History of lithotripsy History of neck surgery X 2 (FUSION) no limitations History of shoulder surgery RT History of tonsillectomy History of wisdom tooth extraction Hx of vasectomy Family History Mother Lung cancer Grandfather (Maternal) Prostate cancer Colorectal cancer Grandfather (Paternal) Myocardial infarction Other No family history of adverse response to anesthesia Social History Smoking Status: Never smoker Second Hand Exposure: No; Do You Dip or Chew Tobacco: No; Hx Alcohol Use: Yes Alcohol type: beer Hx Substance Use: No Preferred Language: Kiswahili Communication Ability: Effective 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: No Beliefs That Will Affect Care: None marital status: Current Living Situation: Spouse and Family Current Living Situation Comment: Lives with spouse and two children current occupational status: employed 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 Other Information That Helps Us Care for You: No Feels Safe at Home: Yes Safety Concerns: Feels Safe At This Time Childhood Exposure to Second-Hand Smoke: Yes Dental Care, Regularly: Yes Physical Activity Frequency: Does not Exercise Seatbelt Use: always Assistive Devices: Glasses Review of Systems Review of Systems: All systems reviewed & are unremarkable except as noted in Subjective Physical Exam Constitutional: WD/WN, vitals as above Eyes: + anicteric sclerae; normal pupil size Respiratory: normal respiratory effort, lungs clear to auscultation Cardiovascular: RRR, no murmur, no edema Gastrointestinal (Abdomen): normal bowel sounds, soft, nontender, no hepatosplenomegaly Musculoskeletal: Neurovascularly intact distal to operation site Skin: no rashes, warm and dry Neurologic: moves all extremities and awake; not confused Psychiatric: A+Ox3, euthymic affect Results & Data Results & Data ([facility]) Vital Signs (Past 12 Hours) Vital Signs Temp Pulse Pulse Resp BP Pulse Ox O2 Del Method 09/13/22 12:45 71 12 116/75 97 Nasal Cannula 09/13/22 12:30 77 15 116/84 93 Room Air 09/13/22 12:15 36.4 C L 76 19 121/78 97 Room Air 09/13/22 12:05 67 15 113/76 98 Room Air 09/13/22 11:45 78 17 112/81 100 Oxymask 09/13/22 11:35 83 20 124/76 100 Oxymask 09/13/22 11:55 85 17 123/76 100 Oxymask 09/13/22 11:29 36.2 C L 89 18 116/76 100 Oxymask 09/13/22 07:08 Room Air 09/13/22 07:08 36.8 C 74 20 154/98 H 96 Room Air O2 Flow Rate 09/13/22 12:45 2 09/13/22 12:30 09/13/22 12:15 09/13/22 12:05 09/13/22 11:45 4 09/13/22 11:35 4 09/13/22 11:55 2 09/13/22 11:29 6 09/13/22 07:08 09/13/22 07:08 PG Care Time/CCT Total # of Minutes Spent Total Time Spent with Patient: Total time spent is greater than 50% in coordination of care (as documented) at patient's floor/unit and/or counseling patient: Coding Level of Care Code INP/OBS CONSULT LVL 3, 45 MIN Diagnoses Status post total right knee replacement Z96.651 Myasthenia gravis G70.00 Acid reflux K21.9 HTN (hypertension) I10
[2022-09-13] MEDS ORDERED: TAMSULOSIN HCL 0.4 MG CAP PO PRN (14:52)
[2022-09-13] MEDS ORDERED: diphenhydrAMINE 50 MG/ML VIAL IV PRN (14:52)
[2022-09-13] MEDS: pyRIDostigmine bromide 60 MG TAB PO SCH ×2 (15:01→21:20)
[2022-09-13] MEDS: ACETAMINOPHEN 500 MG TAB PO SCH ×2 (15:26→21:18)
[2022-09-13] MEDS ORDERED: HYDROCORTISONE SOD 50 MG in SYRINGE 0 ML IV PRN (15:35)
[2022-09-13] MEDS ORDERED: HYDROmorphone INJ 0.5 MG/0.5 ML SYR IV PRN (17:59)
[2022-09-13] MEDS: oxyCODONE HCL IR 5 MG TAB (IMMEDIATE RELEASE) PO PRN (18:35)
[2022-09-13] MEDS: ASPIRIN 81 MG ECTAB PO SCH (21:19)
[2022-09-13] MEDS: SENNA 8.6 MG TAB PO SCH (21:19)
[2022-09-13] MEDS: DOCUSATE SODIUM 100 MG CAP PO SCH (21:20)
[2022-09-13] MEDS: azaTHIOprine 50 MG TAB PO SCH (21:20)
[2022-09-14] MEDS: oxyCODONE HCL IR 5 MG TAB (IMMEDIATE RELEASE) PO PRN ×5 (01:24→20:52)
[2022-09-14] MEDS ORDERED: pyRIDostigmine bromide 60 MG TAB PO ONE (04:31)
[2022-09-14] MEDS: ACETAMINOPHEN 500 MG TAB PO SCH ×3 (06:01→21:26)
--- NOTE | 2022-09-14 07:54 | Orthopedic Progress Note ---
Date of Service September 14, 2022 Assessment & Plan (1) Status post total right knee replacement: Plan: POD#1 Right TKA -PT/OT -Pain management as written -AM labs pending -DVT prophylaxis-SCDs, TEDs, ASA 81mg BID -D/c planning-plan on discharge home, likely discharge tomorrow. Admission and Anticipated Discharge Date Admission Date: September 13, 2022 Subjective Patient is POD#1 right TKA. Pain is controlled. He states he did have an episode a couple of hours ago in which in slid out of bed reaching for call galvez and did need assistance to get back. Has had some dizziness as well, mild sob states consistent with his Myasthenia Gravis. No chest pain, n/v/d. Review of Systems Review of Systems: All systems reviewed & are unremarkable except as noted in Subjective Physical Exam Physical Exam: Right knee dressing is c/d/i, hemovac on suction 150cc last shift. No calf tenderness. Toes mobile with good DF, distally n/v status and sensation grossly intact. Results & Data ([facility]) Vital Signs (Past 12 Hours) Vital Signs Temp Pulse Pulse Resp BP BP Pulse Ox 09/14/22 07:45 36.6 C 67 17 167/102 H 96 09/14/22 06:23 161/98 H 09/14/22 06:04 161/100 H 09/14/22 05:42 36.3 C L 78 18 144/101 H 96 09/14/22 03:41 36.4 C L 77 18 170/97 H 95 09/13/22 21:02 36.8 C 78 16 132/80 94 09/13/22 23:00 36.6 C 65 16 125/80 94 O2 Del Method 09/14/22 07:45 Room Air 09/14/22 06:23 09/14/22 06:04 09/14/22 05:42 Room Air 09/14/22 03:41 Room Air 09/13/22 21:02 Room Air 09/13/22 23:00 Room Air
[2022-09-14] MEDS: DOCUSATE SODIUM 100 MG CAP PO SCH ×2 (08:48→20:53)
[2022-09-14] MEDS: azaTHIOprine 50 MG TAB PO SCH ×2 (08:48→20:54)
[2022-09-14] MEDS: MULTIVITAMIN TAB PO SCH (08:48)
[2022-09-14] MEDS: ASPIRIN 81 MG ECTAB PO SCH ×2 (08:48→20:52)
[2022-09-14] MEDS: lisinopril 40 MG TAB PO SCH (08:48)
[2022-09-14] MEDS: PANTOprazole 40 MG TAB PO SCH (08:48)
[2022-09-14] MEDS: pyRIDostigmine bromide 60 MG TAB PO SCH ×3 (08:50→20:54)
[2022-09-14] MEDS: predniSONE 10 MG TABLET PO SCH (10:27)
[2022-09-14 13:09] LABS: Hematocrit (blood only) 41.6 % (42.0-52.0); Hemoglobin 14.4 g/dl (14.0-18.0); Mean Corpuscular Hemoglobin 32.4 pg (25.0-34.0); Mean Corpuscular Hgb Conc 34.6 g/dL (32.0-36.0); Mean Corpuscular Volume 93.7 fL (80.0-100.0); Mean Platelet Volume 9.8 fL (9.4-12.4); Platelet Count 315 K/uL (130-400); RDW Standard Deviation 44.5 fL (36.4-46.3); Red Blood Count 4.44 M/uL (4.70-6.10)
[2022-09-14 13:18] LABS: Calcium 8.7 mg/dl (8.5-10.1); Creatinine Clr Calc Pharmacy 95.6 ml/min; Est GFR (African American) 103.3 ml/min; Est GFR (Non-African American) 89.1 ml/min; Potassium 4.4 mmol/L (3.5-5.1)
[2022-09-14 13:48] LABS: Basophils # (auto) 0.04 K/uL (0-0.2); Basophils % (auto) 0.2 %; Immature Granulocytes # (auto) 0.17 K/uL (0.01-0.20); Immature Granulocytes % (auto) 0.7 %; Lymphocytes # (auto) 0.62 K/uL (1.2-3.4); Lymphocytes % (auto) 2.6 %; Monocytes # (auto) 1.94 K/uL (0.11-0.59); Monocytes % (auto) 8.2 %; Neutrophils # (auto) 20.93 K/uL (1.40-6.50); Neutrophils % (auto) 88.3 %
--- NOTE | 2022-09-14 19:08 | Hospitalist Progress Note ---
Date of Service September 14, 2022 Assessment & Plan (1) Status post total right knee replacement: Plan: Pain/VTE/Bowel management per primary orthopedic team (2) Myasthenia gravis: Plan: Continue prednisone 30mg PO daily (current blood pressure 143/92 therefore will defer stress dose steroids but have hydrocortisone 50 mg IV 1 dose as needed if his systolic blood pressure < 100 overnight - please call provider if this is given for ongoing dosing). Continue azathioprine 50mg PO BID Continue pyridostigmine 120mg PO TID (3) Acid reflux: Plan: Switch Nexium for pantoprazole per hospital formulary (4) HTN (hypertension): Plan: Continue diltiazem ER 180mg PO daily Continue lisinopril 40mg PO daily starting tomorrow as long as sBP >= 120 Plan Admission and Anticipated Discharge Date Admission Date: September 13, 2022 Subjective Patient Pain is controlled. No chest pain, n/v/d. Physical Exam Physical Exam: Head and ENT no thyroid enlargement trachea midline Cardiovascular S1-S2 are normal no S3 Lungs bilateral air entry fair no wheezing Abdomen soft nondistended no rebound tenderness Extremity shows trace edema Neurologically no focal deficits Skin shows no rash no cyanosis Results & Data Results & Data ([facility]) Vital Signs (Past 12 Hours) Vital Signs Temp Pulse Resp BP Pulse Ox Pulse Ox O2 Del Method 09/14/22 14:13 36.8 C 80 17 151/88 H 93 Room Air 09/14/22 12:00 36.9 C 92 H 18 156/92 H 95 Room Air 09/14/22 11:11 96 09/14/22 07:45 36.6 C 67 17 167/102 H 96 Room Air O2 Flow Rate 09/14/22 14:13 09/14/22 12:00 09/14/22 11:11 0 09/14/22 07:45 PG Care Time/CCT Total # of Minutes Spent Total Time Spent with Patient: Total time spent is greater than 50% in coordination of care (as documented) at patient's floor/unit and/or counseling patient: Coding Level of Care Code 03020 SUB INP/OBS CARE 09/13MIN Diagnoses Status post total right knee replacement Z96.651 Myasthenia gravis G70.00 Acid reflux K21.9 HTN (hypertension) I10
[2022-09-14] MEDS ORDERED: CALCIUM CARBONATE 500 MG CHEWABLE TAB PO STA (20:33)
[2022-09-14] MEDS: SENNA 8.6 MG TAB PO SCH (20:53)
[2022-09-15] MEDS: oxyCODONE HCL IR 5 MG TAB (IMMEDIATE RELEASE) PO PRN ×5 (00:49→20:38)
[2022-09-15] MEDS: ACETAMINOPHEN 500 MG TAB PO SCH ×3 (05:32→20:38)
[2022-09-15 07:54] LABS: Hematocrit (blood only) 39.3 % (42.0-52.0); Hemoglobin 13.6 g/dl (14.0-18.0); Mean Corpuscular Hemoglobin 32.5 pg (25.0-34.0); Mean Corpuscular Hgb Conc 34.6 g/dL (32.0-36.0); Mean Platelet Volume 9.7 fL (9.4-12.4); Platelet Count 271 K/uL (130-400); RDW Coefficient of Variation 13.4 % (11.5-14.5); Red Blood Count 4.18 M/uL (4.70-6.10); White Blood Count 14.85 K/ul (4.8-10.8)
[2022-09-15] MEDS: MULTIVITAMIN TAB PO SCH (08:01)
[2022-09-15] MEDS: lisinopril 40 MG TAB PO SCH (08:01)
[2022-09-15] MEDS: ASPIRIN 81 MG ECTAB PO SCH ×2 (08:02→20:39)
[2022-09-15] MEDS: PANTOprazole 40 MG TAB PO SCH (08:02)
[2022-09-15] MEDS: DOCUSATE SODIUM 100 MG CAP PO SCH ×2 (08:02→20:39)
[2022-09-15] MEDS: azaTHIOprine 50 MG TAB PO SCH ×2 (08:03→20:39)
[2022-09-15] MEDS: pyRIDostigmine bromide 60 MG TAB PO SCH ×3 (08:03→20:39)
[2022-09-15] MEDS: predniSONE 10 MG TABLET PO SCH (08:03)
--- NOTE | 2022-09-15 10:22 | Orthopedic Progress Note ---
Date of Service September 15, 2022 Assessment & Plan (1) Status post total right knee replacement: Plan: POD#1 Right TKA -PT/OT -Pain management as written -Leukocytosis-White count trending down from 23-14. Patient currently asymptomatic. Likely from steroids and or surgical stress. -DVT prophylaxis-SCDs, TEDs, ASA 81mg BID -D/c planning-plan on discharge home with outpatient PT. Plan for discharge to home today if okay with medicine service. Admission and Anticipated Discharge Date Admission Date: September 13, 2022 Subjective Postop day 2 Patient sitting up in bed awake and alert. Pain is controlled. No complaints this morning. He is hoping to go home today. Physical Exam Physical Exam: Dressings are clean, dry, and intact. Plan for dressing change and Hemovac removal today. Calves are soft nontender. Neurovascular intact. Toes are mobile. Results & Data ([facility]) Vital Signs (Past 12 Hours) Vital Signs Temp Pulse Resp BP Pulse Ox O2 Del Method 09/15/22 07:30 36.7 C 64 20 160/89 H 96 Room Air Laboratory Results Laboratory Results WBC 14.85 K/ul (4.8-10.8) H 09/15/22 07: RBC 4.18 M/uL (4.70-6.10) L 09/15/22 07:28 Hgb 13.6 g/dl (14.0-18.0) L 09/15/22 07:28 Hct 39.3 % (42.0-52.0) L 09/15/22 07:28 MCV 94.0 fL (80.0-100.0) 09/15/22 07:28 MCH 32.5 pg (25.0-34.0) 09/15/22 07:28 MCHC 34.6 g/dL (32.0-36.0) 09/15/22 07: RDW Std Deviation 46.0 fL (36.4-46.3) 09/15/22 07: RDW Coeff of Ronald 13.4 % (11.5-14.5) 09/15/22 07: Plt Count 271 K/uL (130-400) 09/15/22 07: MPV 9.7 fL (9.4-12.4) 09/15/22 07:28 Immature Gran % (Auto) 0.7 % 09/14/22 12:38 Neut % (Auto) 88.3 % 09/14/22 12:38 Lymph % (Auto) 2.6 % 09/14/22 12:38 [place] % (Auto) 8.2 % 09/14/22 12:38 Eos % (Auto) 0.0 % 09/14/22 12:38 Baso % (Auto) 0.2 % 09/14/22 12:38 Neut # (Auto) 20.93 K/uL (1.40-6.50) H 09/14/22 12:38 Lymph # (Auto) 0.62 K/uL (1.2-3.4) L 09/14/22 12:38 [place] # (Auto) 1.94 K/uL (0.11-0.59) H 09/14/22 12:38 Eos # (Auto) 0.00 K/uL (0-0.50) 09/14/22 12:38 Baso # (Auto) 0.04 K/uL (0-0.2) 09/14/22 12:38 Immature Gran # (Auto) 0.17 K/uL (0.01-0.20) 09/14/22 12:38 PT 9.9 Seconds (9.0-12.0) 09/13/22 06:33 INR 0.9 (0.9-1.1) 09/13/22 06:33 APTT 27.1 Seconds (21.0-31.0) 09/13/22 06:33 PTT Ratio 1.0 09/13/22 06:33 Sodium 139 mmol/L (136-145) 09/14/22 12:38 Potassium 4.4 mmol/L (3.5-5.1) 09/14/22 12:38 Chloride 103 mmol/L (98-107) 09/14/22 12:38 Carbon Dioxide 32 mmol/L (21-32) 09/14/22 12:38 Anion Gap 4 (3-11) 09/14/22 12:38 BUN 19 mg/dl (6-23) 09/14/22 12:38 Creatinine 0.95 mg/dl (0.6-1.4) 09/14/22 12:38 Est Cr Clr Drug Dosing 95.6 ml/min 09/14/22 12:38 Est GFR ( Amer) 103.3 ml/min 09/14/22 12:38 Est GFR (Non-Af Amer) 89.1 ml/min 09/14/22 12:38 BUN/Creatinine Ratio 20.0 (10-20) 09/14/22 12:38 Glucose 168 mg/dl (70-99(Fasting)) H 09/14/22 12:38 Calcium 8.7 mg/dl (8.5-10.1) 09/14/22 12:38 Urine Color Yellow 09/13/22 07:30 Urine Appearance Cloudy (Clear) A 09/13/22 07:30 Urine pH 7.0 (4.5-7.5) 09/13/22 07:30 Ur Specific [place] 1.014 (1.000-1.030) 09/13/22 07:30 Urine Protein Negative (Negative) 09/13/22 07:30 Urine Glucose (UA) Negative (Negative) 09/13/22 07:30 Urine Ketones Negative (Negative) 09/13/22 07:30 Urine Blood Negative (Negative) 09/13/22 07:30 Urine Nitrite Negative (Negative) 09/13/22 07:30 Urine Bilirubin Negative (Negative) 09/13/22 07:30 Urine Urobilinogen Negative (Negative) 09/13/22 07:30 Ur Leukocyte Esterase Negative (Negative) 09/13/22 07:30 Urine WBC (Auto) 1-5 /hpf (0-5) 09/13/22 07:30 Urine RBC (Auto) 0-4 /hpf (0-4) 09/13/22 07:30 U Hyaline Cast (Auto) 1-5 /lpf (0-5) 09/13/22 07:30 U Epithel Cells (Auto) 5-10 /lpf (0-5) H 09/13/22 07:30 Urine Bacteria (Auto) Negative (Negative) 09/13/22 07:30 SARS-CoV-2, RNA, NAAT NEGATIVE (NEGATIVE) 09/13/22 Unknown Blood Type O Negative 09/13/22 06:33 Antibody Screen NEGATIVE 09/13/22 06:33 Impressions
[2022-09-15] MEDS: dilTIAZem HCL 180 MG CAPCR PO SCH (11:10)
[2022-09-15] MEDS: SENNA 8.6 MG TAB PO SCH (20:38)
--- NOTE | 2022-09-15 22:58 | Hospitalist Progress Note ---
Date of Service September 15, 2022 Assessment & Plan (1) Status post total right knee replacement: Plan: Pain/VTE/Bowel management per primary orthopedic team 09/15-patient status post right knee replacement PT had attempted to ambulate patient but patient had some local weakness and elevated systolic blood pressure Will monitor patient BP trend today as he missed a dose of lisinopril yesterday as well due to OR scheduling (2) Myasthenia gravis: Plan: Continue prednisone 30mg PO daily (current blood pressure 143/92 therefore will defer stress dose steroids but have hydrocortisone 50 mg IV 1 dose as needed if his systolic blood pressure < 100 overnight - please call provider if this is given for ongoing dosing). Continue azathioprine 50mg PO BID Continue pyridostigmine 120mg PO TID (3) Acid reflux: Plan: Switch Nexium for pantoprazole per hospital formulary (4) HTN (hypertension): Plan: Continue diltiazem ER 180mg PO daily Continue lisinopril 40mg PO daily starting tomorrow as long as sBP >= 120 Plan Admission and Anticipated Discharge Date Admission Date: September 15, 2022 Subjective Patient is postop day 2 PT attempted to ambulate patient but patient systolic blood pressure was elevated Pain is controlled. Physical Exam Physical Exam: Head and ENT no thyroid enlargement trachea midline Cardiovascular S1-S2 are normal no S3 Lungs bilateral air entry fair no wheezing Abdomen soft nondistended no rebound tenderness Extremity shows trace edema Neurologically no focal deficits Skin shows no rash no cyanosis Results & Data Results & Data ([facility]) Vital Signs (Past 12 Hours) Vital Signs Temp Pulse Pulse Resp BP Pulse Ox O2 Del Method 09/15/22 16:00 37.1 C 74 18 157/88 H 95 Room Air 09/15/22 15:14 91 H 158/101 H 94 Room Air 09/15/22 14:12 77 178/98 H 95 Room Air 09/15/22 13:08 77 171/100 H 95 Room Air 09/15/22 11:12 75 175/99 H PG Care Time/CCT Total # of Minutes Spent Total Time Spent with Patient: Total time spent is greater than 50% in coordination of care (as documented) at patient's floor/unit and/or counseling patient: Coding Level of Care Code 49989 SUB INP/OBS CARE 2/35MIN Diagnoses Status post total right knee replacement Z96.651 Myasthenia gravis G70.00 Acid reflux K21.9 HTN (hypertension) I10
[2022-09-16] MEDS: ACETAMINOPHEN 500 MG TAB PO SCH (06:00)
[2022-09-16] MEDS: dilTIAZem HCL 180 MG CAPCR PO SCH (09:01)
[2022-09-16] MEDS: pyRIDostigmine bromide 60 MG TAB PO SCH (09:01)
[2022-09-16] MEDS: lisinopril 40 MG TAB PO SCH (09:01)
[2022-09-16] MEDS: MULTIVITAMIN TAB PO SCH (09:01)
[2022-09-16] MEDS: predniSONE 10 MG TABLET PO SCH (09:01)
[2022-09-16] MEDS: PANTOprazole 40 MG TAB PO SCH (09:01)
[2022-09-16] MEDS: azaTHIOprine 50 MG TAB PO SCH (09:02)
[2022-09-16] MEDS: DOCUSATE SODIUM 100 MG CAP PO SCH (09:02)
[2022-09-16] MEDS: ASPIRIN 81 MG ECTAB PO SCH (09:02)
--- NOTE | 2022-09-16 09:20 | Orthopedic Progress Note ---
Date of Service September 16, 2022 Assessment & Plan (1) Status post total right knee replacement: Plan: POD#3 Right TKA -PT/OT -Pain management as written -Leukocytosis-White count trending down from 23-14. Patient currently asymptomatic. Likely from steroids and or surgical stress. -DVT prophylaxis-SCDs, TEDs, ASA 81mg BID -DC held yesterday secondary to hypertension. SBP as high as 178 and DBP as high as 101. This morning he is 145/78. -D/c planning-plan on discharge home with outpatient PT. Plan for discharge to home today if okay with medicine service. Admission and Anticipated Discharge Date Admission Date: September 15, 2022 Subjective Postop day 3 Patient sitting up in his chair at the bedside eating breakfast. No complaints this morning. Pain is controlled. Blood pressure is better this morning at 145/78. Physical Exam Physical Exam: Melita dressing is clean, dry, and intact. Calves are soft nontender. Neurovascular intact. Toes are mobile. Results & Data ([facility]) Vital Signs (Past 12 Hours) Vital Signs Temp Pulse Pulse Resp BP BP Pulse Ox 09/16/22 07:25 36.9 C 73 16 145/78 H 96 09/16/22 00:36 36.8 C 78 16 152/77 H 96 O2 Del Method O2 Flow Rate 09/16/22 07:25 Nasal Cannula 2 09/16/22 00:36 Room Air
[2022-09-16] MEDS: oxyCODONE HCL IR 5 MG TAB (IMMEDIATE RELEASE) PO PRN (09:45)
--- NOTE | 2022-09-19 11:48 | Discharge Summary ---
Date of Service September 19, 2022 Admission HPI Per Admitting Provider 57-year-old male with past medical history significant for hypertension, myasthenia gravis, SVT, asthma, migraines who presents with ongoing right knee pain. Pain is interfering with his daily activities. He has failed conservative measures and would like to proceed with surgical intervention. Patient denies headaches, sweats, fevers, chills, double vision, blurred vision, cough, sore throat, dysphagia, chest pain, sob, wheezing, n/v/d/c, numbness, tingling, fatigue, urinary symptoms, mood disorders. ROS positive for right knee pain and stiffness. Admission Exam Per Admitting Provider Physical Exam Constitutional: well developed and well nourished; no acute distress Eyes: PERRL, conjunctivae normal, anicteric sclerae ENMT: external ear and nose normal, oropharynx normal Neck: trachea midline, no thyromegaly Respiratory: normal respiratory effort, lungs clear to auscultation Cardiovascular: RRR, no murmur, no edema Musculoskeletal: Right knee radiographs demonstrate end-stage osteoarthritis right knee. Patient has [id number] medial compartment. There is tricompartmental degenerative changes. He has periarticular osteophyte formation and subchondral sclerosis. Skin: no rashes, warm and dry Neurologic: patellar DTR's 2+ bilat, sensation intact Psychiatric: A+Ox3, euthymic affect Principal Diagnosis Right Knee Osteoarthritis Discharge Data Allergies Allergy/AdvReac Type Severity Reaction Status Date / Time bee venom protein (honey bee) Allergy Unknown Anaphylaxis Verified 09/18/22 10:25 celecoxib [From Celebrex] Allergy Unknown Flushed Verified 09/18/22 10:25 face, throat tightness hydrocodone [From Vicodin] Allergy Unknown Finger Verified 09/18/22 10:25 swelling, Rash (back) Penicillins Allergy Unknown Hives Verified 09/18/22 10:25 vancomycin Allergy Unknown Rash (back) Verified 09/18/22 10:25 Consultations 09/08/22 12:23 Consult Hospitalist Routine Procedures Performed Operation Date: 09/13/22 09:35 Actual Procedures p Right Total Knee Arthroplasty - Marvel Rosenthal MD Ordered Studies 06/21/22 05:00 US - OR guided needle placemen Routine 09/13/22 05:00 US - OR guided needle placemen Routine Hospital Course (1) Status post total right knee replacement: Patient was admitted on the above-noted date and had the above-noted surgery performed which he tolerated well. On his first postoperative day, pain was con trolled. Patient had an episode where he was reaching for the call galvez postoperatively and ended up sliding out of his bed. He needed assistance to get back in. He had some dizziness as well. Mild shortness of breath and states consistent with his myasthenia gravis. No chest pain, nausea or vomiting. Dressings are clean dry and intact. Calves soft nontender. Neurovascular intact. Toes are mobile. Hemovac drainage was 150 cc from the previous shift. Elevated blood pressure at 167/102. Patient was started on PT and OT protocols. Continued on DVT prophylaxis and pain management. [facility] physician group hospitalist service was consulted for medical management and continue to follow the patient during his stay. By his second postoperative day, he was sitting up in bed awake and alert. Pain was controlled. He had no complaints that morning. He was hoping to go home. Dressings were clean, dry, and intact. Calves soft and nontender. Neurovascular intact. Toes mobile. Plans were for dressing change and Hemovac removal. He was continued on his PT and OT protocols. Continued on DVT prophylaxis and pain management. Later on that morning, nursing had notified me of elevated blood pressures. It was felt that discharge should be held secondary to elevated blood pressures and medicine service was planning to address his blood pressures. Patient continued remain asymptomatic. By his third postoperative day, he was sitting up in his chair at the bedside eating breakfast. He had no complaints. Pain was controlled. Blood pressure was better the morning at 145/78. Melita dressing was clean dry and intact. Calf soft nontender. Neuro vas intact. Toes mobile. He was progressing with physical therapy. I had contacted hospitalist service about discharge of which they felt was reasonable. Plans for patient to follow his blood pressures at home and also to follow-up with primary care and/or his scada technician to discuss any further blood pressure issues in a week. Total Time Total Time Spent Total Time Spent (In Minutes): 10 Discharge Plan Discharge Items Patient Disposition: Home - Self-Care Reason For Visit: RIGHT TKA Discharge Diagnosis: Right knee osteoarthritis Activity: Per Instructions section Weightbearing: Right weightbearing Weightbearing Comment: As tolerated with walker Non-emergency contact: Surgeon Call non-emergency contact if: you have any medication questions, your pain is not controlled, your pain is concerning for you, you have a fever, your temperature is above 101, your wound has increased redness and your wound has increased drainage Follow-up/Referrals: Josep Chowdhury DO [Primary Care Provider] - 09/21/22 10:00 am Marvel Rosenthal MD [Surgeon] - (Follow-up with Dr. Rosenthal or his PA in 2 weeks from the day of your surgery for your first postoperative visit) Diet: Regular Addtl Attending Provider Instructions: ACTIVITY RECOMMENDATIONS: SELF CARE INSTRUCTIONS AFTER TOTAL KNEE REPLACEMENT A. You may need to continue a physical therapy program after discharge from the hospital. There are several options available to you. Your doctor will assist you in selecting the best one for you. 1. An out-patient facility 2 to 3 times a week for therapy or home therapy. 2. Continue working on all exercises taught to you in the hospital. Your goals should be to increase bending of your knee to 90 degrees and beyond and to fully straighten your knee. B. You may progress at your own pace from walking with a walker or crutches to a cane; then to no assistive devices. C. Make walking a part of your daily routine. Be up as much as comfortable w ith rest periods throughout the day. Rest with leg elevation is very important. Use the ice wrap frequently for the first 3-4 weeks. D. There are no restrictions on activities. You may ride in a car, shop, participate in mutual fund analyst and all social activities. E. Wear the long elastic stockings (KELLY hose) 20 hours a day for 2 weeks after surgery. They can be removed several times a day for laundering and for a bath. F. You may shower, no tub baths until cleared by your doctor. SPECIAL CARE INSTRUCTIONS: VERY IMPORTANT TO READ AND REVIEW A. There are a few signs you need to watch for after you are home. Call [facility] if you notice any of the followin. Increased severe knee pain. Some pain is expected especially when you exercise. 2. Increased swelling in your leg or knee; pain or swelling of the calf muscle in either lower leg. 3. Any fluid drainage from the incision. 4. Shortness of breath or chest pain. B. Please call [facility] at if you have any concerns or questions about your operation or recovery. The doctor or his nurse will return your call promptly. C. You must take antibiotics before dental work, bladder, bowel or other surgery. Your doctor will provide you with a permanent care to carry describing this precaution. IMPORTANT: * REMEMBER TO TAKE ASPIRIN, 81 MG, TWICE DAILY FOR 4 WEEKS UNLESS OTHERWISE DIR ECTED. THIS IS YOUR BLOOD THINNER. * HIGH RISK PATIENTS MAY BE PRESCRIBED A STRONGER BLOOD THINNER. THIS WILL BE PROVIDED AT DISCHARGE. * CALL IF INCREASED PAIN, REDNESS, DRAINAGE OR FEVER GREATER THAT 101. * WEAR KELLY HOSE 20 HOURS PER DAY FOR 2 WEEKS. This is a large suction dressing covering your incision. This will help pull any excess drainage from the wound and allow your incision to heal properly. You may shower with this if you can keep the unit outside of the shower. If any bleeding or leakage is noted please call your doctor's office. This will remain on your incision for 7 days and then should be removed. This can be done yourself or by the home nursing staff if applicable. The entire unit is disposable once removed. Once removed, keep incision clean and dry. If redness or drainage is noted, please call your surgeon. IF INCISION IS LEAKING THROUGH DRESSING, CALL THE OFFICE . CHECK YOUR BLOOD PRESSURE AT HOME REGULARLY. IT WILL FLUCTUATE OVER THE NEXT WEEK. IF IT CONTINUES TO REMAIN ELEVATED, PLEASE CONTACT YOUR PCP TO HAVE IT CHECKED AT THEIR OFFICE. FOLLOW UP VISIT: If appointment is not already scheduled: Please call [facility] to make a follow-up appointment for 2 weeks after your surgery at . Stand-Alone Forms: My [employer], Smoking Cessation Medications and DC Order Prescriptions: New acetaminophen [Tylenol Extra Strength] 500 mg Tablet 1,000 mg PO Q8 14 Days Qty: 84 0RF aspirin 81 mg Tablet,Delayed Release (Dr/Ec) 81 mg PO BID 30 Days Qty: 60 0RF oxycodone 5 mg tablet 5 mg PO Q4H MDD 6 tabs PRN (Reason: pain) Qty: 18 0RF Continued epinephrine 0.3 mg/0.3 mL auto-injector 0.3 mg IM Q4H PRN (Reason: BEE STING) Qty: 2 0RF Ajovy Autoinjector 225 mg/1.5 mL auto-injector 225 mg subcut MONTHLY 30 Days Qty: 1.5 11RF pyridostigmine bromide 60 mg tablet 120 mg PO TID diltiazem HCl 180 mg tablet extended release 24 hr 180 mg PO QAM Qty: 90 0RF albuterol sulfate 90 mcg/actuation HFA aerosol inhaler 2 puff inhalation Q4H PRN (Reason: shortness of breath or wheezing) Qty: 18 3RF esomeprazole magnesium [Nexium] 20 mg Capsule,Delayed Release(Dr/Ec) 20 mg PO QAM rizatriptan [Maxalt] 10 mg tablet 10 mg PO UD PRN (Reason: migraine headache) Rx Instructions: take 1 tab at onset of headache; if no relief may repeat 1 tab in 2hr; max = 3 tabs/day (24hr) PO 10 mg PRN (VERIFIED PAT 09/04/22) lisinopril 10 mg tablet 40 mg PO QAM prednisone 20 mg Tablet 30 mg PO QAM azathioprine 50 mg Tablet 50 mg PO BID Discontinued acetaminophen 500 mg tablet 1,000 mg PO Q4H PRN (Reason: fever or pain) Qty: 90 2RF Discharge Orders: Discharge Order (Routine); Ordered 09/16/22 Ordered By: Landon Robbins/Other Patient Handouts: LENNOX Total Knee Replacement Admission Data Admit Date/Time: 09/15/22 15:09 Attending Provider: Marvel Rosenthal Admit Provider: Marvel Rosenthal Primary Care Provider: Josep Chowdhury Other Providers: Denver Snow Rajesh Other Interventions: Discharge Summary Assessment (RN) Last Done: 09/16/22 11:20
== END 2022-09-16 13:26 | disposition home or self-care (01) ==
LOC: ASU 06:20 → 3N 06:20